=== PATIENT | male | born 1940 | race Caucasian/White ===

== ENCOUNTER 2018-04-11 09:42 | Emergency (ER) | payer MEDICARE ==
--- NOTE | 2018-04-11 10:39 | ER Document Report ---
ED Medical Screen (RME) - General Chief Complaint: Abdominal Pain >50 Stated Complaint: CONSTIPATION Time Seen by Provider: 04/11/18 10:25 Mode of Arrival: Wheelchair Information source: Patient Notes: 78-year-old male brought to the emergency department for nausea, vomiting, abdominal pain. Patient is concerned about a possible bowel obstruction. Patient states that he has not had a bowel movements, urinated, passed gas since yesterday around noon. Patient states that he has had surgery on his abdomen. He had a colon resection done in 2010 for a possible cancerous mass. Patient denies any chest pain, shortness of breath. I have greeted and performed a rapid initial assessment of this patient. A comprehensive ED assessment and evaluation of the patient, analysis of test results and completion of the medical decision making process will be conducted by additional ED providers. PHYSICAL EXAMINATION: GENERAL: Well-appearing, well-nourished and in no acute distress. HEAD: Atraumatic, normocephalic. EYES: Pupils equal round extraocular movements intact, conjunctiva are normal. ENT: Nares patent NECK: Normal range of motion LUNGS: No respiratory distress Musculoskeletal: Normal range of motion NEUROLOGICAL: Normal speech. PSYCH: Normal mood, normal affect. SKIN: Warm, Dry, normal turgor, no rashes or lesions noted. TRAVEL OUTSIDE OF THE [place] IN LAST 30 DAYS: No - Related Data Allergies/Adverse Reactions: No Known Allergies Allergy (Unverified 04/11/18 09:46) Past Medical History - Social History Chew tobacco use (# tins/day): No Frequency of alcohol use: None Drug Abuse: None Renal/ Medical History: Denies: Hx Peritoneal Dialysis Physical Exam - Vital signs Vitals: Temp Pulse Resp BP Pulse Ox 98.3 F 65 16 161/75 H 95 04/11/18 09:52 04/11/18 09:52 04/11/18 09:52 04/11/18 09:52 04/11/18 09:52 Course - Vital Signs Vital signs: Temp Pulse Resp BP Pulse Ox 98.3 F 65 16 161/75 H 95 04/11/18 09:52 04/11/18 09:52 04/11/18 09:52 04/11/18 09:52 04/11/18 09:52
[2018-04-11] MEDS ORDERED: PHARMACY COMMUNICATION ORDER MC NR (10:45)
[2018-04-11 11:08] LABS: ABSOLUTE LYMPHOCYTES (AUTO) 1.2 10^3/uL (0.5-4.7); ABSOLUTE MONOCYTES (AUTO) 0.6 10^3/uL (0.1-1.4); ABSOLUTE NEUT (AUTO) 9.8 10^3/uL (1.7-8.2); BASOPHILS % (AUTO) 0.4 % (0-2); EOSINOPHILS % (AUTO) 0.1 % (0-6); HEMATOCRIT 36.1 % (37.9-51.0); HEMOGLOBIN 12.5 g/dL (13.5-17.0); LYMPHOCYTES % (AUTO) 10.4 % (13-45); MEAN CORPUSCULAR HEMOGLOBIN 30.1 pg (27.0-33.4); MEAN CORPUSCULAR HGB CONC 34.7 g/dL (32.0-36.0); MEAN CORPUSCULAR VOLUME 87 fl (80-97); MONOCYTES % (AUTO) 5.2 % (3-13); PLATELET COUNT 412 10^3/uL (150-450); RED BLOOD COUNT 4.15 10^6/uL (4.35-5.55); SEGMENTED NEUTROPHILS % (AUTO) 83.9 % (42-78); TOTAL CELLS COUNTED % (AUTO) 100 %; WHITE BLOOD COUNT 11.6 10^3/uL (4.0-10.5)
[2018-04-11 11:18] LABS: ALANINE AMINOTRANSFERASE 36 U/L (21-72); ALBUMIN 4.1 g/dL (3.5-5.0); ALKALINE PHOSPHATASE 105 U/L (38-126); ANION GAP 14 (5-19); ASPARTATE AMINO TRANSFERASE 32 U/L (17-59); BILIRUBIN,DIRECT 0.3 mg/dL (0.0-0.4); BILIRUBIN,TOTAL 0.8 mg/dL (0.2-1.3); BLOOD UREA NITROGEN 23 mg/dL (7-20); CALCIUM 9.6 mg/dL (8.4-10.2); CARBON DIOXIDE 27 mmol/L (22-30); CHLORIDE 100 mmol/L (98-107); LIPASE 59.6 U/L (23-300); POTASSIUM 4.5 mmol/L (3.6-5.0); SODIUM 141.2 mmol/L (137-145); TOTAL PROTEIN 7.3 g/dL (6.3-8.2)
[2018-04-11 11:19] LABS: GLUCOSE 134 mg/dL (75-110)
--- NOTE | 2018-04-11 12:47 | RADIOLOGY REPORT (SQ) ---
EXAM DESCRIPTION: CT ABD/PELVIS WITH IV ONLY COMPLETED DATE/TIME: 04/11/2018 12:27 pm REASON FOR STUDY: abdominal pain COMPARISON: None. TECHNIQUE: CT scan of the abdomen and pelvis performed using helical scanning technique with dynamic intravenous contrast injection. No oral contrast. Images reviewed with lung, soft tissue, and bone windows. Reconstructed coronal and sagittal MPR images reviewed. Delayed images for evaluation of the urinary system also acquired. All images stored on PACS. All CT scanners at this facility use dose modulation, iterative reconstruction, and/or weight based d osing when appropriate to reduce radiation dose to as low as reasonably achievable (ALARA). [facility]: Dose Right [facility]: CareDose [facility]: Dose Right [facility]: Teradose 4D [facility]: [employer] CONTRAST TYPE AND DOSE: contrast/concentration: Isovue 350.00 mg/ml; Total Contrast Delivered: 79.0 ml; Total Saline Delivered: 56.0 ml RENAL FUNCTION: BUN 23 creatinine 1.14 RADIATION DOSE: CT Rad equipment meets quality standard of care and radiation dose reduction techniq ues were employed. CTDIvol: 8.5 - 11.9 mGy. DLP: 1042 mGy-cm.. LIMITATIONS: None. FINDINGS: LOWER CHEST: No significant findings. No nodules or infiltrates. LIVER: Scattered small cysts. SPLEEN: Old granulomatous disease. PANCREAS: Atrophy. GALLBLADDER: No identified stones by CT criteria. No inflammatory changes to suggest cholecystitis. ADRENAL GLANDS: No significant masses or asymmetry. RIGHT KIDNEY AND URETER: No solid masses. Renal calculi measuring up to about 3 mm. No hydronephr osis or hydroureter. LEFT KIDNEY AND URETER: Cortical cyst. No solid masses. No significant calcifications. No hydron ephrosis or hydroureter. AORTA AND VESSELS: No aneurysm. No dissection. Renal arteries, SMA, celiac without stenosis. RETROPERITONEUM: No retroperitoneal adenopathy, hemorrhage or masses. BOWEL AND PERITONEAL CAVITY: Right hemicolectomy. Mildly dilated loops of small bowel with gas fluid levels midline and left lower quadrant without clear transition point. Distal small bowel is decomp ressed. No ascites or free air. APPENDIX: Surgically absent. PELVIS: No mass. No free fluid. Normal bladder. ABDOMINAL WALL: No masses. No hernias. BONES: No acute findings. OTHER: No other significant finding. IMPRESSION: Ileus or partial small bowel obstruction. No high-grade obstruction. TECHNICAL DOCUMENTATION: JOB ID: [id number] Quality ID # [id number]: Final reports with documentation of one or more dose reduction techniques (e.g., Au tomated exposure control, adjustment of the mA and/or kV according to patient size, use of iterative reconstruction technique) 2010 [employer]- All Rights Reserved Reading location - IP/workstation name: [email or web address]
[2018-04-11 13:52] LABS: APPEARANCE,URINE CLEAR; BILIRUBIN,URINE NEGATIVE (NEGATIVE); COLOR,URINE YELLOW; GLUCOSE, URINE NEGATIVE (NEGATIVE); KETONES,URINE NEGATIVE (NEGATIVE); LEUKOCYTE ESTERASE,URINE NEGATIVE (NEGATIVE); NITRITE,URINE NEGATIVE (NEGATIVE); PROTEIN,URINE NEGATIVE (NEGATIVE); URINE SPECIFIC GRAVITY 1.053; UROBILINOGEN,URINE NEGATIVE mg/dL (<2.0)
[2018-04-11] MEDS ORDERED: LIDOCAINE 2% INJ-PF (20 MG/ML) 10 ML AMPUL NEB ONE (14:23)
--- NOTE | 2018-04-11 14:28 | ER Document Report ---
ED General - General Mode of Arrival: Wheelchair Information source: Patient TRAVEL OUTSIDE OF THE [place] IN LAST 30 DAYS: No <BETTY SANCHEZ - Last Filed: 04/11/18 19:37> <KARRIE HARRY - Last Filed: 04/11/18 19:56> - General Chief Complaint: Abdominal Pain >50 Stated Complaint: CONSTIPATION Time Seen by Provider: 04/11/18 10:25 Notes: Patient is an 78 year old male presenting to the emergency department complaining of nausea, vomiting abdominal pain and distension onset 2 days ago. Patient states over the last 2 days, he has been unable to pass gas or have a bowel movement further stating his last bowel movement 2 days ago and was very hard. Patient states he had 2 episodes of vomiting and a 10 lb weight loss in 2 weeks. Patient denies fevers. Patient states states he had a left total knee replacement 2 weeks ago and is currently prescribed oxycodone for this. He states that he had a hemicolectomy approximately 2 years ago due to precancerous lesions and a colonoscopy which showed inflammation within the last 2 years. (BETTY SANCHEZ) - Related Data Allergies/Adverse Reactions: No Known Allergies Allergy (Unverified 04/11/18 09:46) Past Medical History - General Information source: Patient - Social History Smoking Status: Never Smoker Chew tobacco use (# tins/day): No Frequency of alcohol use: None Drug Abuse: None Patient has suicidal ideation: No Patient has homicidal ideation: No - Past Medical History Cardiac Medical History: Reports: Hx Hypercholesterolemia, Hx Hypertension Musculoskeletal Medical History: Reports Hx Arthritis Past Surgical History: Reports: Hx Bowel Surgery - 2 inches of colon, Hx Orthopedic Surgery - left tkr, right shoulder <BETTY SANCHEZ - Last Filed: 04/11/18 19:37> - Social History Family History: Reviewed & Not Pertinent <KARRIE HARRY - Last Filed: 04/11/18 19:56> Review of Systems - Review of Systems Constitutional: No symptoms reported EENT: No symptoms reported Cardiovascular: No symptoms reported Respiratory: No symptoms reported Gastrointestinal: See HPI Genitourinary: No symptoms reported Male Genitourinary: No symptoms reported Musculoskeletal: No symptoms reported Skin: No symptoms reported Hematologic/Lymphatic: No symptoms reported Neurological/Psychological: No symptoms reported -: Yes All other systems reviewed and negative <BETTY SANCHEZ - Last Filed: 04/11/18 19:37> Physical Exam <BETTY SANCHEZ - Last Filed: 04/11/18 19:37> <KARRIE HARRY - Last Filed: 04/11/18 19:56> - Vital signs Vitals: Temp Pulse Resp BP Pulse Ox 98.3 F 65 16 161/75 H 95 04/11/18 09:52 04/11/18 09:52 04/11/18 09:52 04/11/18 09:52 04/11/18 09:52 - Notes Notes: GENERAL: Alert, interacts well. No acute distress. HEAD: Normocephalic, atraumatic. EYES: Pupils equal, round, and reactive to light. Extraocular movements intact. ENT: Oral mucosa moist, tongue midline. NECK: Full range of motion. Supple. Trachea midline. LUNGS: Clear to auscultation bilaterally, no wheezes, rales, or rhonchi. No respiratory distress. HEART: Regular rate and rhythm. No murmurs, gallops, or rubs. ABDOMEN: Soft, non-tender. Distended, not Tympanitic. Bowel sounds slightly decreased. EXTREMITIES: Moves all 4 extremities spontaneously. No edema, radial and dorsalis pedis pulses 2/4 bilaterally. No cyanosis. NEUROLOGICAL: Alert and oriented x3. Normal speech. PSYCH: Normal affect, normal mood. SKIN: Warm, dry, normal turgor. Well approximated healing incision over left knee consistent with surgical history. (BETTY SANCHEZ) Course - Laboratory Result Diagrams: 04/11/18 10:50 04/11/18 10:50 <BETTY SANCHEZ - Last Filed: 04/11/18 19:37> - Laboratory Result Diagrams: 04/11/18 10:50 04/11/18 10:50 <KARRIE HARRY - Last Filed: 04/11/18 19:56> - Re-evaluation Re-evalutation: 04/11/18 14:[address] Leger the surgeon medical transcription radiology, he states that he will not admit to the patient with out and orally contrast a CT scan, request that we put an NG tube in, give oral contrast and wait 2 hours and then rescan the patient. He feels that this patient is likely simply constipated from opioids and will not admit the patient until he is orally contrast a CAT scan. 04/11/18 19:36 CT scan has returned, shows mild partial small bowel obstruction with possible strain decision point on repeat CT scan. Patient has started to pass a small amount of gas but continues to vomit. NG tube is in place and is suctioning. Discussed with Dr. Leger who agrees to admit the patient to his service on the surgical floor. (KARRIE HARRY) - Vital Signs Vital signs: Temp Pulse Resp BP Pulse Ox 98.3 F 65 17 149/78 H 96 04/11/18 09:52 04/11/18 09:52 04/11/18 19:01 04/11/18 19:00 04/11/18 19:01 - Laboratory Laboratory results interpreted by me: 04/11/18 04/11/18 10:50 10:50 WBC 11.6 H RBC 4.15 L Hgb 12.5 L Hct 36.1 L Seg Neutrophils % 83.9 H Lymphocytes % 10.4 L Absolute Neutrophils 9.8 H BUN 23 H Glucose 134 H Discharge <BETTY SANCHEZ - Last Filed: 04/11/18 19:37> - Discharge Admitting Provider: Surgicalist - [place] [facility] Admitted: Surgical Floor <KARRIE HARRY - Last Filed: 04/11/18 19:56> - Discharge Clinical Impression: Partial small bowel obstruction Condition: Fair Disposition: ADMITTED INPATIENT Referrals: ESPINOZA DICKEY PA-C [Primary Care Provider] - Follow up as needed Scribe Attestation: 04/11/18 19:37 I personally performed the services described in the documentation, reviewed and edited the documentation which was dictated to the scribe in my presence, and it accurately records my words and actions. (KARRIE HARRY)
[2018-04-11] MEDS ORDERED: ONDANSETRON HCL INJ/PF 4 MG/2 ML SDV IV ONE ×2 (15:23→17:51)
--- NOTE | 2018-04-11 15:28 | RADIOLOGY REPORT (SQ) ---
EXAM DESCRIPTION: KUB/ABDOMEN (SINGLE VIEW) COMPLETED DATE/TIME: 04/11/2018 3:01 pm REASON FOR STUDY: ng tube placement verification COMPARISON: None. NUMBER OF VIEWS: One view. TECHNIQUE: Supine radiographic image of the abdomen acquired. LIMITATIONS: None. FINDINGS: The NG tube is not evident on this image. No significant bowel obstruction is seen. IMPRESSION: The NG tube is not seen on this study. TECHNICAL DOCUMENTATION: JOB ID: [id number] [employer]- All Rights Reserved Reading location - IP/workstation name: [email or web address]
--- NOTE | 2018-04-11 16:38 | RADIOLOGY REPORT (SQ) ---
EXAM DESCRIPTION: KUB/ABDOMEN (SINGLE VIEW) COMPLETED DATE/TIME: 04/11/2018 4:10 pm REASON FOR STUDY: ng TUBE PLACEMENT COMPARISON: Earlier the same day. NUMBER OF VIEWS: One view. TECHNIQUE: Supine radiographic image of the abdomen acquired. LIMITATIONS: None. FINDINGS: Nasogastric tube overlies the stomach. Appearance is otherwise unchanged. IMPRESSION: Nasogastric tube in the stomach. Reading location - IP/workstation name: [email or web address]
--- NOTE | 2018-04-11 19:20 | RADIOLOGY REPORT (SQ) ---
EXAM DESCRIPTION: CT ABD/PELVIS ORAL ONLY COMPLETED DATE/TIME: 04/11/2018 6:46 pm REASON FOR STUDY: surgeon requests bc to visualize transition point COMPARISON: None. TECHNIQUE: CT scan of the abdomen and pelvis performed without intravenous contrast. Oral contrast was administered. Images reviewed with lung, soft tissue, and bone windows. Reconstructed coronal an d sagittal MPR images reviewed. All images stored on PACS. All CT scanners at this facility use dose modulation, iterative reconstruction, and/or weight based d osing when appropriate to reduce radiation dose to as low as reasonably achievable (ALARA). [facility]: Dose Right [facility]: CareDose [facility]: Dose Right [facility]: Teradose 4D [facility]: [employer] RADIATION DOSE: CT Rad equipment meets quality standard of care and radiation dose reduction techniq ues were employed. CTDIvol: 9.4 mGy. DLP: 469 mGy-cm.mGy. LIMITATIONS: None. FINDINGS: LOWER CHEST: No significant findings. No nodules or infiltrates. NON-CONTRASTED LIVER, SPLEEN, ADRENALS: There are a couple small hepatic cysts. Spleen and adrenal g lands are unremarkable. PANCREAS: No masses. No peripancreatic inflammatory changes. GALLBLADDER: Gallbladder is slightly hyperdense. No gallstones are appreciated. RIGHT KIDNEY AND URETER: Nonobstructing intrarenal calculi. No masses. No hydronephrosis. LEFT KIDNEY AND URETER: Nonobstructing intrarenal calculi. No masses. No hydronephrosis. AORTA AND RETROPERITONEUM: No aneurysm. No retroperitoneal masses or adenopathy. BOWEL AND PERITONEAL CAVITY: There is radiopaque suture in the right colon. There are some mildly di lated loops of small bowel with a maximum diameter of 3 cm. There may be a transition point in the le ft side of the pelvis on images 61 - 63. APPENDIX: Not identified. PELVIS, BLADDER, AND ABDOMINAL WALL:The prostate gland is enlarged at 6 cm transverse diameter. Urin dane bladder is normal. BONES: No significant findings. OTHER: No other significant finding. IMPRESSION: 1. There may be a partial small bowel obstruction with a transition point as described above. 2. Possible milk of calcium gallbladder. 3. Nonobstructing intrarenal calculi. 4. Prostatic enlargement. COMMENT: Quality ID # [id number]: Final reports with documentation of one or more dose reduction techniques (e.g., Automated exposure control, adjustment of the mA and/or kV according to patient size, use of iterative reconstruction technique) TECHNICAL DOCUMENTATION: JOB ID: [id number] [employer]- All Rights Reserved Reading location - IP/workstation name: [email or web address]
--- NOTE | 2018-04-11 20:20 | PDOC CONSULTATION ---
Consultation Consult Date: 04/11/18 Consult reason:: constipation History of Present Illness Admission Date/PCP: 04/11/18 20:00 ESPINOZA DICKEY PA-C Patient complains of: constipation History of Present Illness: MARTHA HANSEN is a 78 year old male s/p TKA 2 weeks ago, taking narcotics, c/o constipation and slight nausea. His abdominal CT scan shows mild small bowel dilatation, partial SBO, air and stools in colon. He is currently passing flatus during the interview. Past Medical History Cardiac Medical History: Reports: Hyperlipidema, Hypertension Musculoskeltal Medical History: Reports: Arthritis Past Surgical History Past Surgical History: Reports: Orthopedic Surgery - left tkr, right shoulder Social History Smoking Status: Never Smoker Family History Family History: Reviewed & Not Pertinent Parental Family History Reviewed: No Children Family History Reviewed: No Sibling(s) Family History Reviewed.: No Medication/Allergy Home Medications: Aspirin [Adult Low Dose Aspirin EC] 81 mg PO DAILY 04/11/18 Meloxicam [Mobic] 15 mg PO QAM 04/11/18 Oxycodone HCl [Oxy-Ir 5 mg Tablet] 5 mg PO Q4HP PRN 04/11/18 Simvastatin [Zocor 20 mg Tablet] 20 mg PO QPM 04/11/18 Tramadol HCl [Ultram 50 mg Tablet] 50 mg PO Q6HP PRN 04/11/18 Valsartan [Diovan 80 mg Tablet] 80 mg PO QAM 04/11/18 Allergies/Adverse Reactions: No Known Allergies Allergy (Unverified 04/11/18 09:46) Physical Exam Vital Signs: Temp Pulse Resp BP Pulse Ox 98.3 F 65 17 149/78 H 96 04/11/18 09:52 04/11/18 09:52 04/11/18 19:01 04/11/18 19:00 04/11/18 19:01 General appearance: PRESENT: no acute distress Head exam: PRESENT: atraumatic Eye exam: PRESENT: EOMI Mouth exam: PRESENT: neck supple Neck exam: PRESENT: full ROM Respiratory exam: PRESENT: clear to auscultation sarah Cardiovascular exam: PRESENT: RRR GI/Abdominal exam: PRESENT: soft, other - not distended, not tender, old healed midline wound Neurological exam: PRESENT: alert, oriented to person Psychiatric exam: PRESENT: normal mood Skin exam: PRESENT: warm Results Impressions: KUB X-Ray 04/11/18 00:00 IMPRESSION: Nasogastric tube in the stomach. Abdomen/Pelvis CT 04/11/18 14:26 IMPRESSION: 1. There may be a partial small bowel obstruction with a transition point as described above. 2. Possible milk of calcium gallbladder. 3. Nonobstructing intrarenal calculi. 4. Prostatic enlargement. Assessment & Plan - Plan Summary Plan Summary: A/ Constipation Flatus present CT scan with oral and IV contrast shows partial mechanical SBO; however, review of films reveals minimal if any dilatation of small bowel loops, air in colon, contrast through entire small bowel, questionable transition point Hx of colon surgery in 2010 Recent TKA with administration of narcotics P/ Fleet enema x 1 Magnesium citrate 1 bottle Remove NGT Discharge to home when stools appear Liquid diet at home x next 3 days, then reintroduce solid food Drink plenty of fluids Eliminate narcotics; instead, use Tylenol with Aleve as needed for pain F/u w/ surgical office ALLEN Aguilar in 2-3 weeks Colace 100 mg by mouth twice a day
[2018-04-11] MEDS ORDERED: MAGNESIUM CITRATE 296 ML BOTTLE PO ONE (20:21)
[2018-04-11] MEDS ORDERED: NA PHOS,M-B/NA PHOS,DI-BA (ADULT) 133 ML ENEMA PR ONE (20:22)
[2018-04-11 23:08] VITALS: BP 138/70
== END 2018-04-11 23:07 | disposition home or self-care (01) ==
LOC: ER 09:42 → UNDOADMIN 20:00 → EH 20:00 → ER 23:07
DX: K56.600 Partial intestinal obstruction, unspecified as to cause (principal); K59.03 Drug induced constipation; R11.2 Nausea with vomiting, unspecified; R10.9 Unspecified abdominal pain; R14.0 Abdominal distension (gaseous)
CPT/HCPCS: 96376; 99284; 96374; 36415; 83690; 85025; 80053; 81001; 74018; 74176; 74177; J3490; J2405

== ENCOUNTER 2020-02-16 16:00 | Emergency (ER) | payer MEDICARE ==
[2020-02-16 16:07] VITALS: BP 172/66
[2020-02-16] MEDS ORDERED: DIPH/PERTUSS(ACELL)/TETANUS VAC/PF 0.5 ML SYR (>=10YO) IM ONE (16:54)
[2020-02-16] MEDS ORDERED: CEFAZOLIN 1 GM/D5W RTU 1 GM/50 ML RTUPB IV ONE (16:54)
--- NOTE | 2020-02-16 16:55 | ER Document Report ---
ED Medical Screen (RME) - General Chief Complaint: Hand Injury Stated Complaint: FINGER INJURY Time Seen by Provider: 02/16/20 16:46 Primary Care Provider: ESPINOZA DICKEY PA-C [Primary Care Provider] - Follow up as needed Information source: Patient Notes: Patient was changing tractor implements and crushed his left hand between metal equipment. Patient with partial amputation of the left fifth finger. Patient with lacerations to the left third and fourth fingers and webspace between the first and second fingers. Patient is right-hand dominant. I have greeted and performed a rapid initial assessment of this patient. A comprehensive ED assessment and evaluation of the patient, analysis of test results and completion of the medical decision making process will be conducted by additional ED providers. TRAVEL OUTSIDE OF THE [place] IN LAST 30 DAYS: No - Related Data Allergies/Adverse Reactions: No Known Allergies Allergy (Verified 02/16/20 16:47) Past Medical History - Past Medical History Cardiac Medical History: Reports: Hx Hypercholesterolemia, Hx Hypertension Renal/ Medical History: Denies: Hx Peritoneal Dialysis Musculoskeltal Medical History: Reports Hx Arthritis Past Surgical History: Reports: Hx Bowel Surgery - 2 inches of colon, Hx Orthopedic Surgery - left tkr, right shoulder Physical Exam - Vital signs Vitals: Temp Pulse Resp BP Pulse Ox 97.9 F 60 18 172/66 H 97 02/16/20 16:06 02/16/20 16:06 02/16/20 16:02/16/20 16:06 02/16/20 16:06 - General General appearance: Appears well, Alert Notes: Partial amputation of the left fifth finger, no active bleeding, multiple lacerations to fingers of the left hand Course - Vital Signs Vital signs: Temp Pulse Resp BP Pulse Ox 97.9 F 60 18 172/66 H 97 02/16/20 16:06 02/16/20 16:06 02/16/20 16:02/16/20 16:06 02/16/20 16:06 Doctor's Discharge - Discharge Referrals: ESPINOZA DICKEY PA-C [Primary Care Provider] - Follow up as needed
[2020-02-16] MEDS: FENTANYL CITRATE INJ/PF 100 MCG/2 ML AMPUL IV ONE ×2 (17:25→18:13)
[2020-02-16] MEDS ORDERED: LIDOCAINE 1.5% INJ-MPF (15 MG/ML) 20 ML AMPUL INJ ONE (17:42)
--- NOTE | 2020-02-16 17:56 | RADIOLOGY REPORT (SQ) ---
EXAM DESCRIPTION: HAND LEFT 3 VIEWS IMAGES COMPLETED DATE/TIME: 02/16/2020 5:29 pm REASON FOR STUDY: crush injury, 3,4 fing lac, part amput 5th finger COMPARISON: None. EXAM PARAMETERS: NUMBER OF VIEWS: Three views. TECHNIQUE: AP, lateral and oblique radiographic images acquired of the left hand. LIMITATIONS: None. FINDINGS: MINERALIZATION: Normal. BONES: Amputation of the 5th digit at the level of the tuft with an oblique fracture through the base of the 5th digit distal phalanx. Background of [id number] degenerative changes involving pred ominantly the distal interphalangeal joints. JOINTS: No effusions. SOFT TISSUES: Punctate hyperdensities projecting in the region of the injury may represent retained r adiopaque foreign bodies. OTHER: No other significant finding. IMPRESSION: Amputation of the 5th digit at the level of the tuft with a nondisplaced oblique fractur e through the base of the distal phalanx. Punctate hyperdensities projecting over the soft tissues m ay represent retained radiopaque foreign bodies. TECHNICAL DOCUMENTATION: JOB ID: [id number] 2010 [employer]- All Rights Reserved Reading location - IP/workstation name: [email or web address]
[2020-02-16] MEDS ORDERED: LIDOCAINE 1.5% INJ-MPF (15 MG/ML) 20 ML AMPUL ONE (18:32)
[2020-02-16] MEDS ORDERED: HYDROCODONE/ACETAMINOPHEN 5-325 MG (6 TAB/ER DISP) PO PRN (20:26)
--- NOTE | 2020-02-19 07:59 | ER Document Report ---
Entered by AUSTIN CEBALLOS SCRIBE 02/16/20 1056 Acting as scribe for:BETTINA MCDOWELL DO ED Hand/Wrist Injury - General Chief Complaint: Hand Injury Stated Complaint: FINGER INJURY Time Seen by Provider: 02/16/20 16:46 Primary Care Provider: ESPINOZA DICKEY PA-C [Primary Care Provider] - Follow up as needed VINNY STALEY JR, DO [ACTIVE PROVISIONAL STAFF] - 02/18/20 Information source: Patient Notes: This 80 year old male patient presents to the emergency department today with a left hand injury. Patient states he was fixing his tractor around noon today and crushed his left hand between x2 metal pieces. Patient denies any other injury and states he is right hand dominant. Patient states the pain is mild and his tetanus was updated while in the ED. TRAVEL OUTSIDE OF THE [place] IN LAST 30 DAYS: No - HPI Injury to: Hand, Small finger Onset: This afternoon Where: Home Timing: Constant Quality of pain: Achy Severity: Moderate Pain Level: 3 - Related Data Allergies/Adverse Reactions: No Known Allergies Allergy (Verified 02/16/20 16:47) Past Medical History - General Information source: Patient - Social History Smoking Status: Unknown if Ever Smoked - unknown Cigarette use (# per day): No Chew tobacco use (# tins/day): No Lives with: Family Family History: Reviewed & Not Pertinent Patient has suicidal ideation: No Patient has homicidal ideation: No - Past Medical History Cardiac Medical History: Reports: Hx Hypercholesterolemia, Hx Hypertension Pulmonary Medical History: Reports: None EENT Medical History: Reports: None Neurological Medical History: Reports: None Endocrine Medical History: Reports: None Renal/ Medical History: Reports: None Malignancy Medical History: Reports None GI Medical History: Reports: None Musculoskeletal Medical History: Reports Hx Arthritis Traumatic Medical History: Reports: None Infectious Medical History: Reports: None Past Surgical History: Reports: Hx Bowel Surgery - 2 inches of colon, Hx Orthopedic Surgery - left tkr, right shoulder Review of Systems - Review of Systems Constitutional: No symptoms reported EENT: No symptoms reported Cardiovascular: No symptoms reported Respiratory: No symptoms reported Gastrointestinal: No symptoms reported Genitourinary: No symptoms reported Male Genitourinary: No symptoms reported Musculoskeletal: See HPI, Other - L hand injury Skin: No symptoms reported Hematologic/Lymphatic: No symptoms reported Neurological/Psychological: No symptoms reported -: Yes All other systems reviewed and negative Physical Exam - Vital signs Vitals: Temp Pulse Resp BP Pulse Ox 97.9 F 60 18 172/66 H 97 02/16/20 16:06 02/16/20 16:06 02/16/20 16:06 02/16/20 16:06 02/16/20 16:06 - General General appearance: Appears well, Alert - HEENT Head: Normocephalic, Atraumatic Eyes: Normal Pupils: PERRL - Respiratory Respiratory status: No respiratory distress Chest status: Nontender Breath sounds: Normal Chest palpation: Normal - Cardiovascular Rhythm: Regular Heart sounds: Normal auscultation Murmur: No - Abdominal Inspection: Normal Distension: No distension Bowel sounds: Normal Tenderness: Nontender - Extremities General lower extremity: Normal inspection. No: Edema Notes: 1.5 cm laceration to palmar surface of the left hand, distal aspect. 1.75 cm laceration to dorsal aspect of left 3rd finger. 1.5-1.75 cm flat laceration to palmar left 4th finger. 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 Some exposure of bone. No injury to left wrist. Normal inspection of right hand. - Neurological Neuro grossly intact: Yes Cognition: Normal Orientation: AAOx4 [place] Coma Scale Eye Opening: Spontaneous [place] Coma Scale Verbal: Oriented [place] Coma Scale Motor: Obeys Commands Alexi Coma Scale Total: 15 Speech: Normal - Psychological Associated symptoms: Normal affect, Normal mood - Skin Skin Temperature: Warm Skin Moisture: Dry Skin Color: Normal Course - Re-evaluation Re-evalutation: 02/16/20 19:38 MDM 80 year old with - Vital Signs Vital signs: Temp Pulse Resp BP Pulse Ox 97.9 F 60 18 172/66 H 97 02/16/20 16:06 02/16/20 16:06 02/16/20 16:06 02/16/20 16:06 02/16/20 16:06 - Diagnostic Test Radiology reviewed: Image reviewed, Reports reviewed Procedures - Laceration/Wound Repair Left Hand 3rd digit Time completed: 19:30 Wound length (cm): 2.5 Wound's Depth, Shape: Into muscle, Irregular, Flap, Contused tissue Anesthetic type: 1% Lidocaine Volume Anesthetic (mLs): 4 Wound explored: Contaminated Wound Debrided: Minimal Wound Repaired With: Sutures Suture Size/Type: 4:0 - 6 nylon sutures placed without difficulty after cleaning with iodine soap. Pt tolerated well without apparent complications. Number of Sutures: 6 Post-procedure NV exam normal: Yes - nl Complications: No Left Hand Time completed: 19:15 Wound length (cm): 1.5 Wound's Depth, Shape: Superficial, Flap Volume Anesthetic (mLs): 2 Wound explored: Contaminated Wound Debrided: Minimal Wound Repaired With: Sutures Suture Size/Type: 4:0 - 3 4-0 nylon sutures placed and flap tacked down. Pt tolerated well without apparent complications. Number of Sutures: 3 Layer Closure?: No Discharge - Discharge Clinical Impression: Open fracture Laceration of left hand Qualifiers: Encounter type: initial encounter Foreign body presence: unspecified Qualified Code(s): S61.412A - Laceration without foreign body of left hand, initial encounter Condition: Stable Disposition: HOME, SELF-CARE Instructions: Laceration Care ([facility]), Oral Narcotic Medication ([facility]), Prophylactic Antibiotic ([facility]), Tetanus Immunization Given ([facility]) Additional Instructions: Rest, Keep left hand clean and dry. See Dr. Staley on Tuesday morning at 8am. Show up at the office at 8. Return here for increased pain, redness, streaking up the arm or other problems or concerns. Take the antibiotic until gone. Start it 02/17/20. Prescriptions: Cephalexin Monohydrate [Keflex 500 mg Capsule] 500 mg PO TID #15 capsule Forms: Elevated Blood Pressure Referrals: ESPINOZA DICKEY PA-C [Primary Care Provider] - Follow up as needed VINNY STALEY JR, DO [ACTIVE PROVISIONAL STAFF] - 02/18/20 I personally performed the services described in the documentation, reviewed and edited the documentation which was dictated to the scribe in my presence, and it accurately records my words and actions.
== END 2020-02-16 22:20 | disposition home or self-care (01) ==
LOC: ER 16:00
PROC: 0HQGXZZ Repair Left Hand Skin, External Approach (ICD-10-PCS; principal; 2020-02-16)
DX: S68.127A Partial traumatic metacarpophalangeal amputation of left little finger, initial encounter (principal); S61.412A Laceration without foreign body of left hand, initial encounter; S61.218A Laceration without foreign body of other finger without damage to nail, initial encounter; S61.211A Laceration without foreign body of left index finger without damage to nail, initial encounter; M79.642 Pain in left hand; W31.89XA Contact with other specified machinery, initial encounter; I10 Essential (primary) hypertension
CPT/HCPCS: 99283; 90471; 96365; 73130; 90715; 12042; J0690; J3010